=== PATIENT | male | born 1965 | race Caucasian/White ===

== ENCOUNTER 2017-12-05 18:33 | Emergency (ER) | payer MEDICAID, SELFPAY ==
[2017-12-05 18:34] VITALS: BP 147/80; PULSE 52; RESP 18; TEMP 36.5; O2SAT 97; BMI 23.7
--- NOTE | 2017-12-05 20:00 | ED.DCSUM_ITS ---
- ER Visit Summary Date of Service: 12/05/17 Chief Complaint: Laceration History of Present Illness: The patient is a [address] Dallas Kothari. He reports that he cut his left thigh with a chain saw just prior to coming to the emergency department. Is an aching pains 1 and 10 severity. He denies any paresthesias distally. States that he is allergic to tetanus and does not take this. Physical Examination: Vitals: Stable. Afebrile. General: Well-nourished and well-developed. Head: Normocephalic atraumatic. Neck: Supple, no lymphadenopathy. No JVD. Nontender. Cardiovascular: Regular rate and rhythm. No murmurs. Respiratory: No respiratory distress. Clear to auscultation bilaterally. Abdominal: Soft, nontender, nondistended, normal bowel sounds. No guarding, rebound, or peritoneal signs. Back: Nontender. Extremities: 8 cm laceration just proximal and lateral to his patella. He is neurovascularly intact distal to this. Skin: Normal color, no rash. Neurologic: Alert and oriented ?3. Cranial nerves II through XII are intact. Normal strength and sensation. Psych: Normal affect. Test Results: Patient refused an x-ray Emergency Department Course and Treatment: His wound anesthetized and repaired. He tolerated it well. He refused tetanus or pain medications. Treatment Plan: He will be discharged instructions to follow-up his primary care physician in 10-14 days for suture removal. Return to the emergency department for any signs of infection. Disposition: To home in improved and stable condition. Impression: 1. Laceration left thigh, 8 cm, repaired. Procedure note: Wound was cleansed with chlorhexidine soap. Anesthetized with 1% lidocaine without epinephrine. Copiously irrigated with normal saline. Wound was explored there is no foreign material present. There were multiple irregular areas that were debrided. There was a small vein that was bleeding on the proximal side of this. This was tied off with one simple interrupted 4-0 Vicryl suture and the bleeding was controlled. It was closed with 9 simple interrupted 4-0 ethilon sutures. The patient tolerated it well. This note was generated with [employer] dictation software. It may contain incorrect words, spelling, and punctuation that were not noted in review of the chart prior to signing ED Disposition - Plan for ED Patient: Disposition: Home or Assisted Living Chief Complaint: Laceration Instructions: ED Laceration Ext Sutr Stap Tape Referrals: Dallas Kothari [Primary Care Provider] - 10-14 Days suture removal
[2017-12-05 20:13] VITALS: BP 120/68
== END 2017-12-05 20:14 | disposition home or self-care (01) ==
LOC: ED 19:15
PROVIDERS: Emergency Provider Emergency Medicine; Family Provider Family Medicine; PCP Family Medicine
DX: S71.112A Laceration without foreign body, left thigh, initial encounter (principal); W31.2XXA Contact with powered woodworking and forming machines, initial encounter; Y93.9 Activity, unspecified; Y92.9 Unspecified place or not applicable; Y99.9 Unspecified external cause status
CPT/HCPCS: 12034; 99283

== ENCOUNTER 2018-02-23 11:08 | Day surgery (SDC) | payer MEDICAID, SELFPAY ==
--- NOTE | 2018-02-23 11:08 | DT_ITS ---
This patient was seen during an EMR downtime February 22, 2018 - March 01, 2018. This patient may have a combination of paper and electronic documentation or all paper documentation. All documentation is viewable within the e-chart portion of [facility] for each patient visit.
--- NOTE | 2018-02-23 11:32 | EKG12_ITS ---
Test Reason : PREOP Blood Pressure : / mmHG Vent. Rate : 045 BPM Atrial Rate : 045 BPM P-R Int : 164 ms QRS Dur : 092 ms QT Int : 454 ms P-R-T Axes : 066 058 059 degrees QTc Int : 392 ms Marked sinus bradycardia Abnormal ECG No previous ECGs available Confirmed by MELANIE FRASER, JAE ([id number]), graphics editor TONIO KNIGHT ([id number] on 03/04/2018 4:38:34 PM Referred By: Gordo Celeste Confirmed By:JAE NAVARRO MD
== END 2018-02-23 16:50 | disposition home or self-care (01) ==
LOC: SDC 02-24 17:15
PROVIDERS: Family Provider Family Medicine; PCP Family Medicine; Visit Provider Surgery
PROC: (CPT 49650; principal; 2018-02-23 12:40)
DX: K40.90 Unilateral inguinal hernia, without obstruction or gangrene, not specified as recurrent (principal)
CPT/HCPCS: 00840; 49650; 93005; J7120; C1781